=== PATIENT | male | born 1995 | race Caucasian/White ===

== ENCOUNTER 2020-06-13 08:42 | Emergency (ER) | payer MEDICAID, SELFPAY ==
[~2020-06-13] VITALS: Ht 190.5 cm; Wt 77.1 kg
--- NOTE | 2020-06-13 09:04 | NUR ---
Patient ambulated to bed 2. RN evaluating patient at bedside.
[2020-06-13 09:05] VITALS: BP 130/64
--- NOTE | 2020-06-13 09:05 | NUR ---
Dr. Ramos is evaluating the patient at bedside.
[2020-06-13] MEDS ORDERED: LIDOCAINE VISCOUS 2% 20 ML UDC PO ONE (09:10)
[2020-06-13] MEDS ORDERED: AMOXICILLIN 500 MG CAP PO ONE (09:10)
--- NOTE | 2020-06-13 09:35 | NUR ---
Patient discharged with v/s stable. Written and verbal after care instructions given and explained. Patient alert, oriented and verbalized understanding of instructions. Ambulatory with steady gait. All questions addressed prior to discharge. ID band removed, NO IV ACCESS THIS VISIT. Patient advised to follow up with PMD. Rx of AMOXICILLIN, LIDOCAINE VISCOUS given. Patient educated on indication of medication including possible reaction and side effects. Opportunity to ask questions provided and answered. PT IN AGREEMENT WITH PLAN OF CARE.
== END 2020-06-13 09:35 | disposition home or self-care (01) ==
LOC: MED 08:42
DX: J03.90 Acute tonsillitis, unspecified (principal); F17.210 Nicotine dependence, cigarettes, uncomplicated
CPT/HCPCS: 99283